=== PATIENT | male | born 1990 | race Caucasian/White ===

== ENCOUNTER 2018-03-21 16:47 | Emergency (ER) | payer MEDICAID, OTHER ==
[~2018-03-21] VITALS: Ht 182.9 cm; Wt 85.0 kg
[2018-03-21 19:32] VITALS: BP 113/66
== END 2018-03-21 19:55 | disposition home or self-care (01) ==
LOC: ED 18:28
DX: T40.1X1A Poisoning by heroin, accidental (unintentional), initial encounter (principal); R41.0 Disorientation, unspecified; Y92.89 Other specified places as the place of occurrence of the external cause
CPT/HCPCS: 99283

== ENCOUNTER 2018-03-22 20:44 | Emergency (ER) | payer MEDICAID ==
[~2018-03-22] VITALS: Ht 182.9 cm; Wt 70.0 kg
[2018-03-22 23:28] VITALS: BP 128/78
== END 2018-03-22 23:31 | disposition home or self-care (01) ==
LOC: ED 22:11
DX: T40.1X1A Poisoning by heroin, accidental (unintentional), initial encounter (principal); F11.10 Opioid abuse, uncomplicated; F10.10 Alcohol abuse, uncomplicated; F17.200 Nicotine dependence, unspecified, uncomplicated; Z72.9 Problem related to lifestyle, unspecified; Y92.89 Other specified places as the place of occurrence of the external cause; Z88.6 Allergy status to analgesic agent
CPT/HCPCS: 93005; 99283

== ENCOUNTER 2019-10-17 14:17 | Emergency (ER) | payer MEDICAID ==
[~2019-10-17] VITALS: Ht 195.6 cm; Wt 75.1 kg
--- NOTE | 2019-10-17 14:25 | NUR ---
No answer when called from lobby for triage.
--- NOTE | 2019-10-17 14:36 | NUR ---
No answer when called from lobby for triage.
[2019-10-17 14:37] VITALS: BP 118/72
== END 2019-10-17 15:32 | disposition home or self-care (01) ==
LOC: ED 15:20
DX: L03.211 Cellulitis of face (principal); F41.1 Generalized anxiety disorder; L98.9 Disorder of the skin and subcutaneous tissue, unspecified; R21 Rash and other nonspecific skin eruption
CPT/HCPCS: 99283

== ENCOUNTER 2019-11-14 07:08 | Emergency (ER) | payer MEDICAID ==
[~2019-11-14] VITALS: Ht 182.9 cm; Wt 70.8 kg
[2019-11-14 07:11] VITALS: BP 110/77
[2019-11-14] MEDS ORDERED: CLON1TAB PO (07:37)
[2019-11-14] MEDS ORDERED: ALPR1TAB2 PO (07:38)
[2019-11-14] MEDS ORDERED: NEOSPORIN OINT. PKT 1 PACKET ONE ×2 (07:44)
--- NOTE | 2019-11-14 08:25 | NUR ---
Patient given discharge instructions and they have confirmed that they understand the instructions. Patient ambulatory with steady gait.
== END 2019-11-14 08:26 | disposition home or self-care (01) ==
LOC: ED 07:35
DX: L03.211 Cellulitis of face (principal); Z76.0 Encounter for issue of repeat prescription; R21 Rash and other nonspecific skin eruption; F17.200 Nicotine dependence, unspecified, uncomplicated
CPT/HCPCS: 99283

== ENCOUNTER 2020-06-13 12:08 | Emergency (ER) | payer MEDICAID ==
[~2020-06-13] VITALS: Ht 182.9 cm; Wt 75.0 kg
[~2020-06-13 12:08] MED LIST: ALPR1TAB2 PO; CLON1TAB PO
[2020-06-13 12:11] VITALS: BP 111/77
== END 2020-06-13 13:09 | disposition home or self-care (01) ==
LOC: ED 13:00
DX: K02.9 Dental caries, unspecified (principal); K08.89 Other specified disorders of teeth and supporting structures
CPT/HCPCS: 99283

== ENCOUNTER 2020-07-12 17:30 | Emergency (ER) | payer MEDICAID ==
[~2020-07-12] VITALS: Ht 182.9 cm; Wt 78.4 kg
[2020-07-12 18:05] VITALS: BP 116/56
--- NOTE | 2020-07-12 18:27 | NUR ---
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
--- NOTE | 2020-07-12 19:00 | NUR ---
Pt resting in room without acute distress noted. 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 Awaiting MD/PA assessment.
--- NOTE | 2020-07-12 20:10 | NUR ---
PA at bedside for exam at this time.
== END 2020-07-12 20:44 | disposition home or self-care (01) ==
LOC: ED 20:35
DX: K04.7 Periapical abscess without sinus (principal)
CPT/HCPCS: 99283